=== PATIENT | male | born 1960 | race Caucasian/White ===

== ENCOUNTER 2017-04-24 11:19 | Emergency (ER) | payer OTHER ==
[~2017-04-24] VITALS: Ht 180.3 cm; Wt 95.2 kg
--- NOTE | ~2017-04-24 | CR282 ---
[facility] A Service of [facility] & [facility] RADIOLOGY TEXT RESULTS PATIENT: TALA LION LOCATION: CFTX : 60 UNIT #: [id number] AGE: [address]: Pam Altman APRN SEX: M ORDER DR: [id number] [facility] [address] [place], [place] [address] [id number] E MR#: [id number] Acc #: [id number] NAME: TALA LION : 1960 SEX: M STUDY DATE/TIME: 04/24/2017 12:05 UNIT: [facility] ROOM: STUDY DESCRIPTION: CR Wrist Min 3 View Rt Attending Physician: Pam Altman A.P.R.N. Ordering Physician: Ed Doctor [id number] [facility] Primary Care Physician: Naty Preciado M.D. MEDICAL IMAGING REPORT This report is preliminary unless electronic signature is present EXAM Right wrist 3 views, 04/24/2017 12:05 hours HISTORY Patient fell today with complaint of right wrist and elbow pain since fall. COMPARISON None FINDINGS AP and lateral and oblique views of the right wrist demonstrate no fracture, dislocation or significant degenerative change. IMPRESSION Negative right wrist. Dictated by... Radha Mcintyre M.D. THIS IS AN ELECTRONICALLY VERIFIED REPORT Radha Mcintyre M.D. at 04/24/2017 6:15 PM Sherrell TD: 04/24/2017 15:03 JOB #: [id number] MEDICAL IMAGING REPORT Page 1 of 1 COPY
--- NOTE | ~2017-04-24 | CR94 ---
[facility] A Service of [facility] & [facility] RADIOLOGY TEXT RESULTS PATIENT: TALA LION LOCATION: CFTX : 60 UNIT #: [id number] AGE: [address]: Pam Altman APRN SEX: M ORDER DR: [id number] [facility] [address]. [place], [place] [address] [id number] E MR#: [id number] Acc #: [id number] NAME: TALA LION : 1960 SEX: M STUDY DATE/TIME: 04/24/2017 12:05 UNIT: [facility] ROOM: STUDY DESCRIPTION: CR Elbow Min 3 Views Rt Attending Physician: Pam Altman A.P.R.N. Ordering Physician: Ed Doctor [id number] [facility] Primary Care Physician: Naty Preciado M.D. MEDICAL IMAGING REPORT This report is preliminary unless electronic signature is present EXAM Right elbow 3 views, 04/24/2017 12:05 hours HISTORY Patient fell today with complaint of pain at the right elbow and wrist since fall. COMPARISON None. FINDINGS AP, lateral and oblique views demonstrate no intraarticular joint effusion or fracture. There is focal soft tissue swelling over the olecranon which could represent edema, hematoma or fluid in the olecranon bursa. IMPRESSION 1. No elbow joint effusion or fracture. 2. Focal soft tissue swelling over the olecranon which could represent edema, hematoma or fluid in the olecranon bursa. Dictated by... Radha Mcintyre M.D. THIS IS AN ELECTRONICALLY VERIFIED REPORT Radha Mcintyre M.D. at 04/24/2017 6:15 PM Sherrell TD: 04/24/2017 14:10 JOB #: [id number] MEDICAL IMAGING REPORT Page 1 of 1 COPY
== END 2017-04-24 12:45 | disposition home or self-care (01) ==
LOC: CED 11:19 → CFTX 11:19
DX: S76.812A Strain of other specified muscles, fascia and tendons at thigh level, left thigh, initial encounter (principal); S50.01XA Contusion of right elbow, initial encounter; S60.211A Contusion of right wrist, initial encounter; C61 Malignant neoplasm of prostate; E78.00 Pure hypercholesterolemia, unspecified; W19.XXXA Unspecified fall, initial encounter; Y92.009 Unspecified place in unspecified non-institutional (private) residence as the place of occurrence of the external cause
CPT/HCPCS: 29260; 73080; 73110; 99284